=== PATIENT | male | born 1980 | race Hispanic/Latino ===

== ENCOUNTER 2018-02-18 04:04 | Emergency (ER) | payer MEDICAID, OTHER ==
[2018-02-18 04:04] VITALS: BMI 25.8
[2018-02-18 04:21] VITALS: BP 129/84; PULSE 104; RESP 16; TEMP 98.5; O2SAT 97
--- NOTE | 2018-02-18 04:46 | C.PDOC ---
History Of Present Illness 37 year old presents to the ED for an evaluation. Patient reports he was drinking alcohol and smoking what he thought was marijuana today. Patient reports after smoking he started feeling "weird", "disoriented" with a mild headache patient reports " I do not feel like myself". Patient thinks it was PCP what he was smoking. Patient denies fever, chills, nausea, vomit, blurry vision, weakness, numbness. Time Seen by Provider: 02/18/18 04:33 Chief Complaint (Nursing): Headache History Per: Patient History/Exam Limitations: intoxication Onset/Duration Of Symptoms: Days Current Symptoms Are (Timing): Still Present Severity: None Quality: "Pain" Associated Symptoms: denies: Photophobia, Blurred Vision Recent travel outside of the [place]: No Additional History Per: Patient Past Medical History Reviewed: Historical Data, Nursing Documentation, Vital Signs Vital Signs: Last Vital Signs Temp 98.5 F 02/18/18 04:14 Pulse 104 H 02/18/18 04:14 Resp 16 02/18/18 04:14 BP 129/84 02/18/18 04:14 Pulse Ox 97 02/18/18 04:48 - Medical History PMH: Asthma, Migraine, Schizophrenia Denies: Chronic Kidney Disease Surgical History: No Surg Hx - [facility] Procedures INJECT/INFUSE NEC (01/19/14) Family History: States: Unknown Family Hx - Social History Hx Alcohol Use: Yes Hx Substance Use: Yes (PCP) - Immunization History Hx Tetanus Toxoid Vaccination: Yes Review Of Systems Constitutional: Negative for: Fever, Chills Eyes: Negative for: Vision Change Cardiovascular: Negative for: Chest Pain, Palpitations Respiratory: Negative for: Cough, Shortness of Breath Skin: Negative for: Rash Neurological: Positive for: Headache. Negative for: Weakness, Numbness Physical Exam - Physical Exam Appears: Non-toxic, No Acute Distress, Other (anxious) Skin: Normal Color, Warm, Dry Head: Atraumatic, Normacephalic, Other (flushed face) Eye(s): bilateral: Normal Inspection Oral Mucosa: Moist Neck: Normal ROM, No Midline Cervical Tenderness, Supple Chest: Symmetrical Cardiovascular: Rhythm Regular Respiratory: Normal Breath Sounds, No Rales, No Rhonchi, No Wheezing Gastrointestinal/Abdominal: Soft, No Tenderness, No Guarding, No Rebound Extremity: Normal ROM, No Tenderness, No Swelling Neurological/Psych: Oriented x3, Normal Speech, Normal Motor, Normal Sensation Gait: Steady ED Course And Treatment O2 Sat by Pulse Oximetry: 97 (ON RA) Pulse Ox Interpretation: Normal Progress Note: Pt appears mildly anxious but in no distress, VSS. Pt left the ER after my evaluation prior to discharge Disposition - Disposition Disposition: ELOPEMENT - ER ONLY Disposition Time: 03:53 Condition: UNKNOWN Forms: [facility] (Burmese) - Clinical Impression Clinical Impression: Drug abuse, Anxiety - PA / OPERATING ROOM MANAGER / Resident Statement MD/DO has reviewed & agrees with the documentation as recorded. - Scribe Statement The provider has reviewed the documentation as recorded by the Scribe Shayne Awad All medical record entries made by the Scribe were at my direction and personally dictated by me. I have reviewed the chart and agree that the record accurately reflects my personal performance of the history, physical exam, medical decision making, and the department course for this patient. I have also personally directed, reviewed, and agree with the discharge instructions and disposition.
== END 2018-02-18 05:06 | disposition left against medical advice (07) ==
LOC: C.ER 04:04
DX: F19.10 Other psychoactive substance abuse, uncomplicated (principal); F41.9 Anxiety disorder, unspecified

== ENCOUNTER 2018-10-12 17:32 | Emergency (ER) | payer MEDICAID, OTHER ==
[2018-10-12 17:32] VITALS: BMI 25.8
[2018-10-12 17:47] VITALS: BP 129/84; PULSE 88; RESP 18; TEMP 98.1; O2SAT 100
== END 2018-10-12 18:19 | disposition left against medical advice (07) ==
LOC: C.ER 17:32
DX: Z02.89 Encounter for other administrative examinations (principal); M54.9 Dorsalgia, unspecified